=== PATIENT | female | born 1955 | race Hispanic/Latino ===

== ENCOUNTER 2017-04-25 09:54 | Outpatient (CLI) | payer OTHER ==
[2017-04-25 10:19] LABS: Hematocrit 40.6 % (30.3-42.9); Hemoglobin 13.9 gm/dl (10.1-14.3); Mean Corpuscular HGB Conc 34 % (30-34); Mean Corpuscular Hemoglobin 30 pg (28-32); Mean Corpuscular Volume 89 fl (79-97); Platelet Count 268 K/mm3 (140-440); Red Blood Count 4.57 M/mm3 (3.65-5.03); Red Cell Distribution Width 12.9 % (13.2-15.2); White Blood Count 6.7 K/mm3 (4.5-11.0)
[2017-04-25 10:35] LABS: Anion Gap 15 mmol/L; Blood Urea Nitrogen 8 mg/dL (7-17); Calcium 9.2 mg/dL (8.4-10.2); Carbon Dioxide 27 mmol/L (22-30); Chloride 104.6 mmol/L (98-107); Glucose 125 mg/dL (65-100); Potassium 4.3 mmol/L (3.6-5.0); Sodium 142 mmol/L (137-145)
== END 2017-04-25 09:55 | disposition home or self-care (01) ==
LOC: CARD 09:54
PROVIDERS: ATTEND Surgery
DX: K40.90 Unilateral inguinal hernia, without obstruction or gangrene, not specified as recurrent (principal)
CPT/HCPCS: 36415; 80048; 85027; 93005; 93010

== ENCOUNTER 2017-05-19 11:10 | Day surgery (SDC) | payer OTHER ==
[~2017-05-19 11:10] MED LIST: PEPCID PO NR; VERSED IV NR
[2017-05-19] MEDS ORDERED: DIPRIVAN 10 MG/ML IV ONE (12:37)
[2017-05-19] MEDS ORDERED: SUBLIMAZE ONE (12:37)
[2017-05-19] MEDS ORDERED: XYLOCAINE MPF 2% ONE (12:41)
--- NOTE | 2017-05-19 12:56 | Anesthesia Day of Surgery ---
Anesthesia Day of Surgery - Day of Surgery Patient Examined: Yes Patient H&P Reviewed: Yes Patient is NPO: Yes
--- NOTE | 2017-05-19 12:56 | Anesthesia Consultation ---
Anesthesia Consult and Med Hx Date of service: 05/19/17 - Airway Anesthetic Teeth Evaluation: Good, Chipped (bottom left molar), Crowns (bottom right molar) ROM Head & Neck: Adequate Mental/Hyoid Distance: Adequate Mallampati Class: Class II Intubation Access Assessment: Probably Good - Pulmonary Exam CTA: Yes - Cardiac Exam Cardiac Exam: RRR - Pre-Operative Health Status ASA Pre-Surgery Classification: ASA2 Proposed Anesthetic Plan: General - Pulmonary Hx Smoking: Yes (CIGARETTES 1/2 PPD X 41 YRS) Hx Asthma: Yes (SINCE AGE 26) - Cardiovascular System Hx Hypertension: No - Central Nervous System Hx Psychiatric Problems: No - Endocrine Hx Renal Disease: No Hx Liver Disease: No Hx Non-Insulin Dependent Diabetes: No Hx Hyperthyroidism: No - Other Systems Hx Cancer: No Hx Obesity: Yes
[2017-05-19] MEDS ORDERED: DILAUDID IV PRN (12:57)
[2017-05-19] MEDS ORDERED: ZOFRAN IV PRN ×2 (12:57→16:54)
[2017-05-19] MEDS ORDERED: ZEMURON IV ONE (13:03)
[2017-05-19] MEDS: NACL 0.9% 1000 ML 1,000 ML IV SCH ×2 (13:25→17:07)
[2017-05-19] MEDS ORDERED: MARCAINE 0.25% INFILTRATI ONE (14:25)
[2017-05-19] MEDS ORDERED: NACL 0.9% IR ONE (14:25)
[2017-05-19] MEDS ORDERED: MARCAINE-EPI 0.25%-1:200,000 INFILTRATI ONE (14:28)
[2017-05-19] MEDS ORDERED: DECADRON ONE (14:54)
[2017-05-19] MEDS ORDERED: MARCAINE-EPI/PF 0.5%-1:200,000 INFILTRATI ONE (14:56)
[2017-05-19] MEDS ORDERED: ANCEF ONE ×2 (15:02)
[2017-05-19] MEDS ORDERED: ROBINUL ONE (15:06)
[2017-05-19] MEDS ORDERED: NEOSTIGMINE ONE (15:06)
[2017-05-19] MEDS ORDERED: ZOFRAN ONE (15:06)
[2017-05-19] MEDS ORDERED: HEPARIN ONE (15:10)
[2017-05-19] MEDS ORDERED: HEPARIN SUB-Q ONE (15:14)
[2017-05-19] MEDS ORDERED: MARCAINE 0.5% INFILTRATI ONE (15:15)
[2017-05-19] MEDS ORDERED: PROAIR IH ONE (15:30)
[2017-05-19] MEDS ORDERED: DILAUDID ONE (15:46)
--- NOTE | 2017-05-19 15:57 | Post Operative Note ---
Pre-op diagnosis: Recurrent incarcerated LLQ incisional hernia Post-op diagnosis: same Procedure: Open repair with large Ventralex mesh Anesthesia: AYAH Surgeon: VIVIAN WEBER Estimated blood loss: minimal Pathology: none Condition: stable Disposition: PACU
[2017-05-19] MEDS ORDERED: TORADOL IV PRN ×2 (16:54→18:00)
[2017-05-19] MEDS ORDERED: NORCO 5/325 PO PRN (17:10)
--- NOTE | 2017-05-19 17:28 | Post Anesthesia Evaluation ---
- Post Anesthesia Evaluation Patient Participated: Yes Airway Patent: Yes Stable Respiratory Function: Yes Nausea/Vomiting: No Temp > 96.8F: Yes Pain Manageable: Yes Adequeate Hydration: Yes Anesthesia Complications: No Block Receding Appropriately: Not Applicable Patient on Ventilator: No
[2017-05-19 18:33] VITALS: BP 122/49
--- NOTE | 2017-06-06 10:19 | Procedure Note ---
Date of procedure: 05/19/17 (This is a full operative note.) Pre-op diagnosis: Recurrent incisional LLQ hernia Post-op diagnosis: same Procedure: Pt was placed supine on the OR table. GETA was obtained. Abdomen was prepped and draped. An incision was made over the hernia. The hernia sac was immediately identified and this was for the adjacent SQ fat down to the facial margins. The sac was incised and was found to contain incarcerated omentum. The omentum was freed from the hernia sac and the omentum reduced back into the peritoneal cavity. A large piece of Ventralex mesh was inserted into the peritoneal cavity via the facial defect. This was secured to the fascia with multiple interrupted sutures of 0-Ethibond. Wound was irrigated with warm saline. SQ tissue was approximated with a running suture of 3-0 Vicryl. Skin was approximated with a running subcuticular suture of 4-0 Monocryl. Wound was covered with a sterile absorbent gauze. Pt tolerated the procedure well. She was extubated in the OR and was taken to the PACU in stable condition. Anesthesia: GETA Surgeon: VIVIAN WEBER Estimated blood loss: minimal Pathology: none Specimen disposition: discarded Condition: stable Disposition: PACU
== END 2017-05-19 18:35 | disposition home or self-care (01) ==
LOC: OR 11:10
PROVIDERS: ATTEND Surgery
DX: K43.0 Incisional hernia with obstruction, without gangrene (principal); K21.9 Gastro-esophageal reflux disease without esophagitis; F17.210 Nicotine dependence, cigarettes, uncomplicated; J45.909 Unspecified asthma, uncomplicated; E66.9 Obesity, unspecified; Z68.31 Body mass index [BMI] 31.0-31.9, adult; Z91.018 Allergy to other foods; Z79.899 Other long term (current) drug therapy
CPT/HCPCS: 49566; 49568; C1781; J0690; J1100; J1170; J1644; J1885; J2250; J2405; J2704; J2710; J3010; J7030